=== PATIENT | male | born 1965 | race Caucasian/White ===

== ENCOUNTER 2018-09-13 04:19 | Emergency (ER) | payer SELFPAY ==
[2018-09-13] MEDS ORDERED: 0.9 % SODIUM CHLORIDE 1,000 ML BAG IV ONE (04:38)
[2018-09-13] MEDS ORDERED: PANTOPRAZOLE SODIUM IV 40 MG VIAL IVP ONE (04:38)
[2018-09-13] MEDS ORDERED: ONDANSETRON HCL IV 4 MG/2 ML VIAL IV ONE (04:38)
--- NOTE | 2018-09-13 04:52 | Emergency Department Record ---
History of Present Illness - General Chief Complaint: Dizziness Stated Complaint: DIZZY Time Seen by Provider: 09/13/18 04:33 Source: Patient Mode of Arrival: Ambulatory Limitations: No limitations - History of Present Illness Initial Comments: The patient is here due to a one day hx of frequent nausea, vomiting and black diarrheal stools. The patient states he may have vomited some blood up during 1 or 2 of the episodes. He also states he has had 5-6 black stools. He denies any AP, fever, chills, CP, SOB or back pain. The patient does have a hx of ulcers but never has had bleeding. He last had an EGD 4 years ago that demonstrated the ulcers. The patient did get lightheaded after the last BM and almost passed out in the bathroom. His mother witnessed the episode and caught him. The patient also states he is a heavy user of alcohol. MD Complaint: Lightheadedness Onset/Timin -: Days(s) Timing: Gradual onset Description: Lightheadedness History of Same: No History of Trauma: No Severity: Mild Improves With: Nothing Worsens With: Nothing Associated Symptoms: Other - [place] Coma Scale Eye Response: (4) Open spontaneously Motor Response: (6) Obeys commands Verbal Response: (5) Oriented [place] Total: 15 - Symptoms of Stroke Symptom Onset Unknown: Yes Symptoms of stroke: Dizziness, Unsteady When Walking Baseline State: Baseline State - Related Data Allergies Allergy/AdvReac Type Severity Reaction Status Date / Time No Known Drug Allergies Allergy Verified 09/13/18 04:20 Travel Screening - Travel/Exposure Within Last 30 Days Have you traveled within the last 30 days?: No - Travel/Exposure Within Last Year Have you traveled outside the [place] in the last year?: No - Additonal Travel Details Have you been exposed to anyone with a communicable illness?: No - Travel Symptoms Symptom Screening: None Review of Systems Constitutional: Denies: Chills, Fever Eyes: Denies: Eye discharge ENT: Denies: Congestion Respiratory: Denies: Cough Cardiovascular: Denies: Arrhythmia, Chest pain Endocrine: Reports: Fatigue Gastrointestinal: Reports: Diarrhea, Nausea, Vomiting Genitourinary: Denies: Dysuria Musculoskeletal: Denies: Arthralgia Skin: Denies: Bruising Past Medical History - SOCIAL HISTORY Smoking Status: Never smoker Alcohol Use: Heavy Drug Use: Heavy Drug Use Detail:: Marijuana - RESPIRATORY Hx Respiratory Disorders: Yes Hx Asthma: Yes - CARDIOVASCULAR Hx Cardio Disorders: No - NEURO Hx Neuro Disorders: No - GI Hx GI Disorders: No - Hx Genitourinary Disorders: No - ENDOCRINE Hx Endocrine Disorders: No - MUSCULOSKELETAL Hx Musculoskeletal Disorders: No - PSYCH Hx Psych Problems: No - HEMATOLOGY/ONCOLOGY Hx Hematology/Oncology Disorders: No Family Medical History Any Significant Family History?: No Physical Exam - General General Appearance: Alert, Oriented x3, Cooperative, No acute distress - Head Head exam: Atraumatic, Normocephalic, Normal inspection - Eye Eye exam: Normal appearance, PERRL - ENT Throat exam: Normal inspection. negative: Tonsillar erythema, Tonsillar exudate - Neck Neck exam: Normal inspection, Full ROM. negative: Tenderness - Respiratory Respiratory exam: Normal lung sounds bilaterally. negative: Respiratory distress - Cardiovascular Cardiovascular Exam: Regular rate, Normal rhythm, Normal heart sounds, Tachycardia - GI/Abdominal GI/Abdominal exam: Soft, Normal bowel sounds. negative: Distended, Rebound, Rigid, Tenderness - Rectal Rectal exam: Black stool, Heme (+) stool - Extremities Extremities exam: Normal inspection, Full ROM, Normal capillary refill. negative: Tenderness - Neurological Neurological exam: Alert. negative: Motor sensory deficit Course Vital Signs 09/13/18 04:21 Temperature 98.1 F Pulse Rate 149 H Respiratory 22 Rate Blood Pressure 104/72 Pulse Ox 99 - Reevaluation(s) Reevaluation #1: The patient is doing a lot better at this time. He no longer is nauseated and his HR has decreased to 100. Due to the fact the patient is clearly having an UGI bleed I did discuss the need for transfer to a larger hospital with GI support and the patient chose [facility] [place]. I then did discuss the case with Dr. Agarwal and he did accept the patient in transfer. 09/13/18 05:19 Reevaluation #2: The patient continues to improve. His vitals have been stable with his last BP 108/80 with a HR of 100. He denies any pain or discomfort. 09/13/18 06:05 Medical Decision Making - Data Complexity MDM Data: Labs Ordered and/or Reviewed, EKG Ordered and/or Reviewed - Lab Data Result diagrams: 09/13/18 04:35 09/13/18 04:35 Lab Results 07/04/19 Range/Units 04:39 Troponin T Cancelled - EKG Data -: EKG Interpreted by Me EKG: Abnormal EKG (Sinus tach at 118, minimal ST depression diffuse leads.) Disposition Disposition: Transfer Clinical Impression: UGIB (upper gastrointestinal bleed) Disposition: Acute Care Hospital Transfer Transfer To: [facility] Reason For Transfer: GI Bleed Accepting Physician: Any Time Discussed w/Accepting Physician: 05:20 Condition: (2) Stable Forms: Patient Portal Access Time of Disposition: 05:20 Quality - Quality Measures Quality Measures: N/A - Blood Pressure Screening View Details: Yes Does Patient Have Any of the Following: No Blood Pressure Classification: Normal BP Reading Systolic Measurement: 104 Diastolic Measurement: 72 Screening for High Blood Pressure: < Normal BP, F/U Not Required > [G8783]
[2018-09-13 05:02] LABS: ABSOLUTE NEUTROPHIL COUNT 12.04; HEMATOCRIT 29.1 % (42.0-52.0); HEMOGLOBIN 10.1 gm/dl (14.0-18.0); MEAN CELL VOLUME 92.7 fl (81-97); MEAN CORPUSCULAR HGB CONC 34.7 g/dl (32-36); PLATELET COUNT 271 K/uL (130-400); RED BLOOD COUNT 3.14 M/uL (4.40-5.70); RED CELL DISTRIBUTION WIDTH 12.7 % (11.5-14.5); WHITE BLOOD COUNT W/O DIFF 15.6 K/uL (4.2-12.2)
[2018-09-13 05:06] LABS: INR 1.1; PARTIAL THROMBOPLASTIN TIME 21.6 SECONDS (24.5-39.1); PROTHROMBIN TIME (PATIENT) 11.3 SECONDS (9.5-12.1)
[2018-09-13 05:08] LABS: MEAN CORPUSCULAR HEMOGLOBIN 32.1 pg (27-33)
[2018-09-13 05:13] LABS: ALKALINE PHOSPHATASE 43 U/L (40-129); ALT/SGPT 12 U/L (<41); AST/SGOT 10 U/L (10.0-50.0); BLOOD UREA NITROGEN 57 mg/dL (6-20); EST GLOMERULAR FILTRATION RATE > 60 mL/min; GLUCOSE,RANDOM 209 mg/dL (74-109); TOTAL PROTEIN 6.1 g/dL (6.6-8.7)
[2018-09-13 05:17] LABS: BILIRUBIN,DIRECT < 0.2 mg/dL (0-0.3)
[2018-09-13 05:18] LABS: LIPASE 18 U/L (13-60)
== END 2018-09-13 06:19 | disposition short-term general hospital (02) ==
LOC: ER 04:19
DX: K92.0 Hematemesis (principal); R42 Dizziness and giddiness; R11.2 Nausea with vomiting, unspecified; R19.5 Other fecal abnormalities; R00.0 Tachycardia, unspecified; F17.220 Nicotine dependence, chewing tobacco, uncomplicated
CPT/HCPCS: 99285 ×2; 96374; 96375; 83690; 85730; 85610; 80076; 80048; 84484; 85027; 93005; 93010; J2405; C9113; J7030